=== PATIENT | female | born 1960 | race Caucasian/White ===

== ENCOUNTER 2021-06-25 07:48 | Emergency (ER) | payer BC ==
[2021-06-25] MEDS ORDERED: Sodium Chloride 0.9% 1,000 ML IV ONE (08:39)
[2021-06-25] MEDS ORDERED: Ondansetron 4 MG/2 ML SDV IVPUSH ONE (08:41)
[2021-06-25] MEDS ORDERED: Magnesium Sulfate (4.06 MEQ/ML) 5 GM/10 ML SDV IV STA (09:25)
[2021-06-25] MEDS ORDERED: Magnesium Sulfate/Water 2 GM in Premix Bag 1 BAG IV ONE (09:45)
[2021-06-25] MEDS: Potassium Chloride 10 MEQ in Premix Bag 1 BAG IV SCH ×2 (10:12→11:25)
[2021-06-25 11:24] VITALS: PULSE 84
[2021-06-25 12:30] VITALS: BP 104/74
== END 2021-06-25 12:30 | disposition home or self-care (01) ==
LOC: SUPCPDRO 07:48 → JD.ED 07:48
DX: K50.919 Crohn's disease, unspecified, with unspecified complications (principal); R11.10 Vomiting, unspecified; E83.42 Hypomagnesemia; E78.00 Pure hypercholesterolemia, unspecified; I10 Essential (primary) hypertension; Z88.8 Allergy status to other drugs, medicaments and biological substances; Z79.899 Other long term (current) drug therapy; Z72.0 Tobacco use
CPT/HCPCS: 36415; 80053; 83735; 85025; 86140; 93005; 96365; 96367; 96368; 96375; 99284; J2405; J3475; J3480; J7030; 93010

== ENCOUNTER 2021-07-20 14:50 | Emergency (ER) | payer BC ==
[2021-07-20] MEDS ORDERED: Sodium Chloride 0.9% 10 ML Syringe FLUSH PRN (15:05)
[2021-07-20] MEDS ORDERED: Magnesium Sulfate/Water 4 GM in Premix Bag 1 BAG IV ONE (15:12)
[2021-07-20 19:27] VITALS: BP 117/69; PULSE 98
== END 2021-07-20 19:45 | disposition home or self-care (01) ==
LOC: JD.ED 14:50
DX: E83.42 Hypomagnesemia (principal); E78.00 Pure hypercholesterolemia, unspecified; I10 Essential (primary) hypertension; Z88.8 Allergy status to other drugs, medicaments and biological substances; Z79.899 Other long term (current) drug therapy; Z72.0 Tobacco use
CPT/HCPCS: 36415; 80053; 83735; 85025; 96365; 96366; 99284; J3475; 99283

== ENCOUNTER 2023-02-22 07:11 | Inpatient (IN) | payer BC ==
[2023-02-22] MEDS ORDERED: Albuterol/Ipratropium 3.0-0.5 MG/3 ML Neb Soln NEB PRN (07:33)
[2023-02-22 07:38] LABS: BASOPHILS PERCENT AUTO 0.4 % (0.0-1.0); EOSINOPHILS PERCENT AUTO 0.2 % (0.0-6.0); HEMATOCRIT 48.5 % (37.0-47.0); HEMOGLOBIN 15.7 gm/dl (12.0-16.0); IMMATURE GRAN ABSOLUTE AUTO 0.04 K/mm3 (0.00-0.05); IMMATURE GRAN PERCENT AUTO 0.8 % (0.0-0.4); LYMPHOCYTES PERCENT AUTO 21.4 % (24.0-44.0); MEAN CORPUSCULAR HEMOGLOBIN 31.5 pg (28.0-32.0); MEAN CORPUSCULAR HGB CONC 32.4 g/dl (32.0-36.0); MEAN CORPUSCULAR VOLUME 97.4 fl (83.0-99.0); MEAN PLATELET VOLUME 9.6 fl (9.4-12.3); MONOCYTES ABSOLUTE AUTO 0.4 K/mm3 (0.0-0.8); MONOCYTES PERCENT AUTO 9.1 % (0.0-8.0); NEUTROPHILS ABSOLUTE AUTO 3.2 K/mm3 (1.8-7.7); NEUTROPHILS PERCENT AUTO 68.1 % (41.0-71.0); PLATELET COUNT,PLT 165 K/mm3 (150-400); RED BLOOD CELL COUNT 4.98 M/mm3 (4.10-5.30); WHITE BLOOD CELL COUNT,WBC 4.73 K/mm3 (3.9-11.3)
[2023-02-22] MEDS ORDERED: Dextrose 5%-0.9% NaCl 1,000 ML IV SCH (07:45)
[2023-02-22 07:49] LABS: INR 0.93
[2023-02-22 07:51] LABS: PTT,PARTIAL THROMBOPLSTIN TIME 29.6 SECONDS (21.7-31.4)
[2023-02-22 08:08] LABS: A/G RATIO 0.8 (1-2); ALBUMIN 3.3 g/dl (3.4-5.0); ANION GAP 13.9 (5-15); BILIRUBIN TOTAL 0.3 mg/dL (0.2-1.0); BUN/CREATININE RATIO 21.4 (14-18); C-REACTIVE PROTEIN 1.7 mg/dL (<1.0); CALCIUM 8.4 mg/dL (8.5-10.1); CREATININE 0.7 mg/dL (0.55-1.02); EST CRCL DRUG DOSING (CG) 63.69 mL/min; MAGNESIUM 1.6 mg/dL (1.8-2.4); POTASSIUM,K 3.9 mEq/L (3.5-5.1); PROTEIN TOTAL,TP 7.4 g/dl (6.4-8.2)
[2023-02-22 08:12] LABS: CORONAVIRUS COVID-19 NAA NEGATIVE (NEGATIVE); INFLUENZA A NAA NEGATIVE (NEGATIVE); RESPIRATORY SYNCYTIAL VIR NAA NEGATIVE (NEGATIVE)
[2023-02-22] MEDS: Albuterol/Ipratropium 3.0-0.5 MG/3 ML Neb Soln NEB PRN ×4 (08:19→21:10)
[2023-02-22] MEDS ORDERED: methylPREDNISolone Sodium Succinate 125 MG/2 ML SDV IVPUSH ONE (08:36)
[2023-02-22] MEDS ORDERED: Magnesium Sulfate/Water 2 GM in Premix Bag 1 BAG IV ONE (08:38)
[2023-02-22 08:43] LABS: BASE EXCESS ARTERIAL -0.9 (-2-2.0); BICARBONATE,ARTERIAL 25.5 meq/L (22.0-26.0); O2 SATURATION ARTERIAL 91.4 % (96.0-97.0); PCO2 ARTERIAL 51.4 mmHg (35.0-45.0)
[2023-02-22] MEDS ORDERED: oxyCODONE 5 MG Tab PO PRN (09:47)
[2023-02-22] MEDS ORDERED: Acetaminophen 325 MG Tab PO PRN (09:47)
[2023-02-22] MEDS ORDERED: Ondansetron 4 MG Tab.DIS PO PRN (09:47)
[2023-02-22] MEDS ORDERED: Losartan 50 MG Tab PO SCH (11:00)
[2023-02-22] MEDS: Heparin Sodium 5,000 Units/ML Vial SUBCUT SCH ×2 (11:25→18:05)
[2023-02-22] MEDS: Azithromycin 500 MG in Sodium Chloride 0.9% 250 ML IV SCH (11:25)
[2023-02-22] MEDS: Sodium Chloride 0.9% 1,000 ML IV SCH (11:29)
[2023-02-22] MEDS ORDERED: AZATHIOPRINE 50 MG PO SCH (14:00)
[2023-02-22] MEDS: Losartan 25 MG Tab PO SCH (14:41)
[2023-02-22] MEDS: amLODIPine 10 MG Tab PO SCH (14:42)
[2023-02-22] MEDS: Fenofibrate Nanocrystallized 145 MG Tab PO SCH (14:42)
[2023-02-22 15:00] LABS: APPEARANCE,URINE CLEAR (Clear); BILIRUBIN,URINE NEGATIVE (Negative); COLOR,URINE YELLOW (Yellow); GLUCOSE,URINE NEGATIVE (Negative); KETONES,URINE NEGATIVE (Negative); LEUKOCYTE ESTERASE,URINE NEGATIVE (Negative); NITRITE,URINE NEGATIVE (Negative); OCCULT BLOOD,URINE TRACE-INTACT (Negative); PROTEIN,URINE 2+ (Negative); UROBILINOGEN,URINE 0.2 (0.2-1.0)
[2023-02-22 15:07] LABS: BACTERIA,URINE FEW /hpf (FEW); EPITHELIAL CELLS,URINE 0-5 /hpf (0-5); MUCUS,URINE MODERATE /hpf (FEW); WBC,URINE 0-5 /hpf (0-5)
[2023-02-22] MEDS: guaiFENesin/Dextromethorphan 100-10 MG/5 ML Soln 5 ML Cup PO PRN (18:05)
[2023-02-22] MEDS: methylPREDNISolone Sodium Succinate 125 MG/2 ML SDV IVPUSH SCH (18:05)
[2023-02-22] MEDS: Nicotine 14 MG/24 Hr Patch TRDERM SCH (18:28)
[2023-02-23] MEDS: methylPREDNISolone Sodium Succinate 125 MG/2 ML SDV IVPUSH SCH ×3 (00:59→18:05)
[2023-02-23] MEDS: Sodium Chloride 0.9% 1,000 ML IV SCH ×2 (00:59→14:39)
[2023-02-23] MEDS: Heparin Sodium 5,000 Units/ML Vial SUBCUT SCH ×4 (01:00→18:05)
[2023-02-23] MEDS: Albuterol/Ipratropium 3.0-0.5 MG/3 ML Neb Soln NEB PRN ×5 (02:10→20:14)
[2023-02-23 05:54] LABS: BASOPHILS PERCENT AUTO 0.2 % (0.0-1.0); HEMATOCRIT 43.2 % (37.0-47.0); HEMOGLOBIN 13.8 gm/dl (12.0-16.0); IMMATURE GRAN ABSOLUTE AUTO 0.05 K/mm3 (0.00-0.05); IMMATURE GRAN PERCENT AUTO 1.2 % (0.0-0.4); LYMPHOCYTES ABSOLUTE AUTO 0.7 K/mm3 (1.0-4.8); LYMPHOCYTES PERCENT AUTO 16.3 % (24.0-44.0); MEAN CORPUSCULAR HEMOGLOBIN 30.7 pg (28.0-32.0); MEAN CORPUSCULAR HGB CONC 31.9 g/dl (32.0-36.0); MEAN CORPUSCULAR VOLUME 96.2 fl (83.0-99.0); MONOCYTES ABSOLUTE AUTO 0.1 K/mm3 (0.0-0.8); MONOCYTES PERCENT AUTO 2.4 % (0.0-8.0); NEUTROPHILS ABSOLUTE AUTO 3.3 K/mm3 (1.8-7.7); NEUTROPHILS PERCENT AUTO 79.9 % (41.0-71.0); PLATELET COUNT,PLT 157 K/mm3 (150-400); RED BLOOD CELL COUNT 4.49 M/mm3 (4.10-5.30); WHITE BLOOD CELL COUNT,WBC 4.11 K/mm3 (3.9-11.3)
[2023-02-23 06:10] LABS: A/G RATIO 0.8 (1-2); ALBUMIN 2.9 g/dl (3.4-5.0); ANION GAP 12.3 (5-15); BILIRUBIN TOTAL 0.2 mg/dL (0.2-1.0); BUN/CREATININE RATIO 17.5 (14-18); CALCIUM 8.3 mg/dL (8.5-10.1); CREATININE 0.8 mg/dL (0.55-1.02); EST CRCL DRUG DOSING (CG) 55.73 mL/min; MAGNESIUM 1.9 mg/dL (1.8-2.4); POTASSIUM,K 4.3 mEq/L (3.5-5.1); PROTEIN TOTAL,TP 6.7 g/dl (6.4-8.2)
[2023-02-23] MEDS: Fenofibrate Nanocrystallized 145 MG Tab PO SCH (08:02)
[2023-02-23] MEDS: amLODIPine 10 MG Tab PO SCH (08:02)
[2023-02-23] MEDS: Losartan 25 MG Tab PO SCH (08:03)
[2023-02-23] MEDS: Azithromycin 500 MG in Sodium Chloride 0.9% 250 ML IV SCH (10:37)
[2023-02-23] MEDS: AZATHIOPRINE 50 MG PO SCH (11:35)
[2023-02-23] MEDS: Nicotine 14 MG/24 Hr Patch TRDERM SCH (18:05)
[2023-02-23] MEDS: guaiFENesin/Dextromethorphan 100-10 MG/5 ML Soln 5 ML Cup PO PRN (18:14)
[2023-02-24] MEDS: Heparin Sodium 5,000 Units/ML Vial SUBCUT SCH ×4 (01:28→17:30)
[2023-02-24] MEDS: methylPREDNISolone Sodium Succinate 125 MG/2 ML SDV IVPUSH SCH ×3 (01:28→17:28)
[2023-02-24] MEDS: Sodium Chloride 0.9% 1,000 ML IV SCH ×2 (03:34→17:05)
[2023-02-24 05:33] LABS: BASOPHILS PERCENT AUTO 0.1 % (0.0-1.0); HEMATOCRIT 41.4 % (37.0-47.0); HEMOGLOBIN 13.9 gm/dl (12.0-16.0); IMMATURE GRAN ABSOLUTE AUTO 0.06 K/mm3 (0.00-0.05); IMMATURE GRAN PERCENT AUTO 0.7 % (0.0-0.4); LYMPHOCYTES ABSOLUTE AUTO 0.7 K/mm3 (1.0-4.8); LYMPHOCYTES PERCENT AUTO 8.9 % (24.0-44.0); MEAN CORPUSCULAR HEMOGLOBIN 32.2 pg (28.0-32.0); MEAN CORPUSCULAR HGB CONC 33.6 g/dl (32.0-36.0); MEAN CORPUSCULAR VOLUME 95.8 fl (83.0-99.0); MEAN PLATELET VOLUME 9.7 fl (9.4-12.3); MONOCYTES ABSOLUTE AUTO 0.3 K/mm3 (0.0-0.8); MONOCYTES PERCENT AUTO 3.5 % (0.0-8.0); NEUTROPHILS ABSOLUTE AUTO 7.2 K/mm3 (1.8-7.7); NEUTROPHILS PERCENT AUTO 86.8 % (41.0-71.0); PLATELET COUNT,PLT 172 K/mm3 (150-400); RED BLOOD CELL COUNT 4.32 M/mm3 (4.10-5.30); WHITE BLOOD CELL COUNT,WBC 8.29 K/mm3 (3.9-11.3)
[2023-02-24 05:44] LABS: A/G RATIO 0.8 (1-2); ALBUMIN 2.7 g/dl (3.4-5.0); ANION GAP 10.1 (5-15); BILIRUBIN TOTAL 0.3 mg/dL (0.2-1.0); BUN/CREATININE RATIO 27.1 (14-18); CALCIUM 8.2 mg/dL (8.5-10.1); CREATININE 0.7 mg/dL (0.55-1.02); EST CRCL DRUG DOSING (CG) 63.69 mL/min; POTASSIUM,K 4.1 mEq/L (3.5-5.1); PROTEIN TOTAL,TP 6.1 g/dl (6.4-8.2)
[2023-02-24] MEDS: Albuterol/Ipratropium 3.0-0.5 MG/3 ML Neb Soln NEB PRN ×3 (06:21→20:28)
[2023-02-24] MEDS: Fenofibrate Nanocrystallized 145 MG Tab PO SCH (08:45)
[2023-02-24] MEDS: amLODIPine 10 MG Tab PO SCH (08:45)
[2023-02-24] MEDS: Losartan 25 MG Tab PO SCH (08:45)
[2023-02-24] MEDS: Azithromycin 500 MG in Sodium Chloride 0.9% 250 ML IV SCH (10:54)
[2023-02-24] MEDS: AZATHIOPRINE 50 MG PO SCH (10:54)
[2023-02-24] MEDS: Nicotine 14 MG/24 Hr Patch TRDERM SCH (18:07)
[2023-02-25] MEDS: Heparin Sodium 5,000 Units/ML Vial SUBCUT SCH ×3 (02:33→18:08)
[2023-02-25] MEDS: methylPREDNISolone Sodium Succinate 125 MG/2 ML SDV IVPUSH SCH ×4 (02:33→23:18)
[2023-02-25] MEDS: Albuterol/Ipratropium 3.0-0.5 MG/3 ML Neb Soln NEB PRN (06:34)
[2023-02-25] MEDS: amLODIPine 10 MG Tab PO SCH (08:47)
[2023-02-25] MEDS: Losartan 25 MG Tab PO SCH (08:48)
[2023-02-25] MEDS: Fenofibrate Nanocrystallized 145 MG Tab PO SCH (08:48)
[2023-02-25] MEDS: Azithromycin 500 MG in Sodium Chloride 0.9% 250 ML IV SCH (09:40)
[2023-02-25] MEDS: AZATHIOPRINE 50 MG PO SCH (11:21)
[2023-02-25] MEDS: Metoprolol Tartrate 25 MG Tab PO SCH ×2 (14:30→23:19)
[2023-02-25] MEDS: Nicotine 14 MG/24 Hr Patch TRDERM SCH (18:08)
[2023-02-25] MEDS ORDERED: Magnesium Oxide 400 MG Tab PO STA (23:17)
[2023-02-26] MEDS: Heparin Sodium 5,000 Units/ML Vial SUBCUT SCH ×3 (03:34→17:32)
[2023-02-26 05:44] LABS: ANION GAP 10.6 (5-15); BUN/CREATININE RATIO 22.2 (14-18); CALCIUM 8.5 mg/dL (8.5-10.1); CREATININE 0.9 mg/dL (0.55-1.02); EST CRCL DRUG DOSING (CG) 49.53 mL/min
[2023-02-26 05:52] LABS: POTASSIUM,K 3.6 mEq/L (3.5-5.1)
[2023-02-26] MEDS: Albuterol/Ipratropium 3.0-0.5 MG/3 ML Neb Soln NEB PRN ×3 (06:02→19:48)
[2023-02-26] MEDS: methylPREDNISolone Sodium Succinate 125 MG/2 ML SDV IVPUSH SCH (07:51)
[2023-02-26] MEDS: Magnesium Oxide 400 MG Tab PO SCH (08:00)
[2023-02-26] MEDS: amLODIPine 10 MG Tab PO SCH (08:00)
[2023-02-26] MEDS: Losartan 25 MG Tab PO SCH (08:00)
[2023-02-26] MEDS: Metoprolol Tartrate 25 MG Tab PO SCH ×2 (08:00→20:16)
[2023-02-26] MEDS: Fenofibrate Nanocrystallized 145 MG Tab PO SCH (08:00)
[2023-02-26] MEDS: Azithromycin 500 MG in Sodium Chloride 0.9% 250 ML IV SCH (09:54)
[2023-02-26] MEDS: AZATHIOPRINE 50 MG PO SCH (10:58)
[2023-02-26] MEDS: Nicotine 14 MG/24 Hr Patch TRDERM SCH (18:00)
[2023-02-26] MEDS: methylPREDNISolone Sodium Succinate 40 MG/1 ML SDV IVPUSH SCH (20:16)
[2023-02-27] MEDS: Heparin Sodium 5,000 Units/ML Vial SUBCUT SCH ×2 (03:33→13:22)
[2023-02-27] MEDS: Losartan 25 MG Tab PO SCH (08:40)
[2023-02-27] MEDS: methylPREDNISolone Sodium Succinate 40 MG/1 ML SDV IVPUSH SCH (08:40)
[2023-02-27] MEDS: Fenofibrate Nanocrystallized 145 MG Tab PO SCH (08:40)
[2023-02-27] MEDS: Metoprolol Tartrate 25 MG Tab PO SCH (08:41)
[2023-02-27] MEDS: amLODIPine 10 MG Tab PO SCH (08:41)
[2023-02-27] MEDS: Magnesium Oxide 400 MG Tab PO SCH (08:46)
[2023-02-27] MEDS: Albuterol/Ipratropium 3.0-0.5 MG/3 ML Neb Soln NEB PRN (08:57)
[2023-02-27 11:57] VITALS: BP 146/84; PULSE 82
[2023-02-27] MEDS: AZATHIOPRINE 50 MG PO SCH (13:23)
== END 2023-02-27 12:14 | disposition home or self-care (01) | DRG 133 ==
LOC: JD.ED 07:11 → JD.MS 09:47
PROVIDERS: ADMIT Internal Medicine; ATTEND Internal Medicine
PROC: 5A09357 Assistance with Respiratory Ventilation, Less than 24 Consecutive Hours, Continuous Positive Airway Pressure (ICD-10-PCS; principal; 2023-02-22)
DX: J96.21 Acute and chronic respiratory failure with hypoxia (principal); J44.1 Chronic obstructive pulmonary disease with (acute) exacerbation; F17.210 Nicotine dependence, cigarettes, uncomplicated; D84.9 Immunodeficiency, unspecified; K50.90 Crohn's disease, unspecified, without complications; I10 Essential (primary) hypertension; E78.00 Pure hypercholesterolemia, unspecified; E83.42 Hypomagnesemia; D64.9 Anemia, unspecified; G43.909 Migraine, unspecified, not intractable, without status migrainosus; J96.22 Acute and chronic respiratory failure with hypercapnia; G47.33 Obstructive sleep apnea (adult) (pediatric); E66.9 Obesity, unspecified; Z90.49 Acquired absence of other specified parts of digestive tract; Z87.440 Personal history of urinary (tract) infections; Z79.51 Long term (current) use of inhaled steroids; Z79.899 Other long term (current) drug therapy; Z11.52 Encounter for screening for COVID-19; Z90.710 Acquired absence of both cervix and uterus; Z98.890 Other specified postprocedural states; Z68.36 Body mass index [BMI] 36.0-36.9, adult
CPT/HCPCS: 0241U; 36415; 36600; 71045; 71045-26; 80048; 80053; 81001; 82803; 83605; 83735; 83880; 84484; 85025; 85379; 85610; 85730; 86140; 87040; 93005; 93010; 94640; 94667; 94668; 94761; 96361; 96365; 96375; 99284; 99285-25; A9270-GY; J0456; J1644; J2920; J2930; J3475; J3490; J7030; J7042; J7050; J7620-GY